=== PATIENT | female | born 1970 | race Caucasian/White ===

== ENCOUNTER 2022-07-09 13:24 | Emergency (ER) | payer SELFPAY ==
[~2022-07-09] VITALS: Ht 157.5 cm; Wt 54.4 kg
[2022-07-09 13:31] VITALS: BP 123/82
[2022-07-09] MEDS ORDERED: HYDROmorphone PFS 2 MG/ML SYR IVP ONE (13:50)
[2022-07-09] MEDS ORDERED: ONDANSETRON 4 MG/2 ML VIAL IVP ONE (13:50)
[2022-07-09 14:02] LABS: BASOPHILS % (AUTO) 0.5 % (0.0-2.0); EOSINOPHILS # (AUTO) 0.4 K/uL (0-0.4); EOSINOPHILS % (AUTO) 4.4 % (0.0-4.0); HEMATOCRIT 39.2 % (36-48); HEMOGLOBIN 13.2 g/dL (12.0-16.0); LYMPHOCYTES # (AUTO) 3.3 K/uL (2.5-16.5); LYMPHOCYTES % (AUTO) 35.1 % (20.5-51.1); MEAN CORPUSCULAR HEMOGLOBIN 30 pg (27-31); MEAN CORPUSCULAR HGB CONC 34 g/dL (33-37); MEAN CORPUSCULAR VOLUME 89.6 fL (80-94); MONOCYTES # (AUTO) 0.6 K/uL (0.8-1.0); MONOCYTES % (AUTO) 6.5 % (1.7-9.3); NEUTROPHILS % (AUTO) 53.5 % (42.2-75.2); PLATELET COUNT (AUTO) 406 K/uL (140-450); RED BLOOD CELL COUNT(AUTO) 4.38 MIL/uL (4.20-5.40); RED CELL DISTRIBUTION WIDTH 12.9 % (11.6-13.7); WHITE BLOOD COUNT (AUTO) 9.4 K/uL (4.8-10.8)
[2022-07-09 14:20] LABS: ALBUMIN 3.8 g/dL (3.4-5.0); ANION GAP 13.5 (8-16); CREATININE 0.7 mg/dL (0.6-1.3); POTASSIUM 4.5 mmol/L (3.5-5.1); TOTAL BILIRUBIN 0.5 mg/dL (0.0-1.0)
--- NOTE | 2022-07-09 15:01 | NUR ---
PT. WITH DISTRESS. AWAKE AND ALERT. NO C/O OF PAIN NOW. PT.'S AT BEDSIDE. DENIES PAIN OR DISCOMFORT
[2022-07-09] MEDS ORDERED: LID5T TP (15:21)
[2022-07-09] MEDS ORDERED: DICL100G5 TP (15:21)
[2022-07-09 15:30] VITALS: BP 126/54
--- NOTE | 2022-07-09 15:30 | NUR ---
Patient discharged with v/s stable. Written and verbal after care instructions given. Patient alert, oriented and verbalized understanding of instructions. Ambulatory with steady gait. All questions addressed prior to discharge. ID band removed. Patient advised to follow up with PMD. Rx of DICLOFENAC SODIUM AND LIDODERM PATCH given. Opportunity to ask questions provided and answered.
== END 2022-07-09 15:30 | disposition home or self-care (01) ==
LOC: MED 13:24
DX: M54.2 Cervicalgia (principal); M25.512 Pain in left shoulder; M25.511 Pain in right shoulder; M62.830 Muscle spasm of back; Z79.899 Other long term (current) drug therapy
CPT/HCPCS: 36415; 80053; 85025; 96374; 96375; 99284; J1170; J2405